=== PATIENT | female | born 1980 | race Caucasian/White ===

== ENCOUNTER 2017-08-28 11:35 | Emergency (ER) | payer OTHER ==
[2017-08-28 11:50] VITALS: BP 135/76; PULSE 98; O2SAT 98
--- NOTE | 2017-08-28 11:58 | ERPHSYRPT ---
- History of Present Illness Time Seen by Provider: 08/28/17 11:53 Source: patient Exam Limitations: no limitations Patient Subjective Stated Complaint: sore throat for several days. seen at [facility] last mon and was given a shot of cortisone. states is not getting any better. Triage Nursing Assessment: swelling noted to anterior neck. skin w/d, color normal, resp easy. Physician History: Patient is a 37-year-old female with her complaining that she started getting a sore throat on Monday, 3 days ago. She states her neck in the front is also a little swollen. She denies fever or chills. She went to see [facility] last week because her head was stuffy and she received steroid injections. Her past medical history is unremarkable. Timing/Duration: gradual onset, days (3) Severity: moderate Prearrival Treatment: no prearrival treatment Modifying Factors: Improves With: nothing Associated Symptoms: swollen glands, sore throat Allergies/Adverse Reactions: No Known Drug Allergies Allergy (Verified 08/28/17 11:44) Hx Tetanus, Diphtheria Vaccination/Date Given: No Hx Influenza Vaccination/Date Given: No Hx Pneumococcal Vaccination/Date Given: No - Review of Systems Constitutional: No Fever, No Chills Eyes: No Symptoms Ears, Nose, & Throat: Throat Pain, Painful Swallowing, No Throat Swelling Respiratory: No Cough, No Dyspnea Cardiac: No Chest Pain, No Edema, No Syncope Abdominal/Gastrointestinal: No Abdominal Pain, No Nausea, No Vomiting, No Diarrhea Genitourinary Symptoms: No Dysuria Musculoskeletal: No Back Pain, No Neck Pain Skin: No Rash Neurological: No Dizziness, No Focal Weakness, No Sensory Changes Psychological: No Symptoms Endocrine: No Symptoms Hematologic/Lymphatic: No Symptoms Immunological/Allergic: No Symptoms All Other Systems: Reviewed and Negative - Past Medical History Pertinent Past Medical History: Yes Neurological History: No Pertinent History ENT History: No Pertinent History Cardiac History: No Pertinent History Respiratory History: Bronchitis, COPD Endocrine Medical History: No Pertinent History Musculoskeletal History: No Pertinent History GI Medical History: No Pertinent History History: No Pertinent History Psycho-Social History: No Pertinent History Female Reproductive Disorders: No Pertinent History - Past Surgical History Past Surgical History: Yes Neuro Surgical History: No Pertinent History Cardiac: No Pertinent History Respiratory: No Pertinent History Gastrointestinal: No Pertinent History Genitourinary: No Pertinent History Musculoskeletal: No Pertinent History Female Surgical History: Section, Tubal Ligation - Social History Smoking Status: Current every day smoker How long have you smoked: 23 Exposure to second hand smoke: Yes Drug Use: none Patient Lives Alone: No - Female History Hx Last Menstrual Period: two weeks ago Hx Now: No - Nursing Vital Signs Nursing Vital Signs: Initial Vital Signs Temperature 98.9 F 08/28/17 11:40 Pulse Rate 98 H 08/28/17 11:40 Respiratory Rate 18 08/28/17 11:40 Blood Pressure 135/76 08/28/17 11:40 O2 Sat by Pulse Oximetry 98 08/28/17 11:40 Pain Scale Pain Intensity 8 - Physical Exam General Appearance: no apparent distress, alert Eye Exam: bilateral eye: PERRL, EOMI Ear Exam: bilateral ear: auricle normal Nasal Exam: normal inspection Throat Exam: tonsillar exudate, tonsillar swelling Neck Exam: supple Cardiovascular/Respiratory Exam: regular rate/rhythm, wheezing (mild) Abdominal Exam: non-tender, soft Neurologic Exam: alert, oriented x 3, sensation nml, No motor deficits Skin Exam: normal color, warm, dry SpO2 Interpretation: normal SpO2: 98 Oxygen Delivery: Room Air Ordered Tests: Active Orders 24 hr Category Date Time Status STREP SCREEN-BETA A Stat Lab 08/28/17 12:30 Received - Progress Progress: unchanged Counseled pt/family regarding: lab results, diagnosis - Departure Time of Disposition: 13:07 Departure Disposition: Home Clinical Impression: Strep pharyngitis Condition: Stable Critical Care Time: No Referrals: RON STEPHENSON [Primary Care Provider] - Additional Instructions: You have strep throat. Take penicillin 500 mg 4 times a day for the complete 10 day period. You are considered infectious and can pass on the the disease for the first 24 hours after beginning the antibiotic. So for 24 hours, avoid public places if possible. Take Tylenol and ibuprofen as needed. Gargle with warm salt water as needed. Prescriptions: Penicillin V Potassium 500 mg PO QID #40 tablet
== END 2017-08-28 13:32 | disposition home or self-care (01) ==
LOC: ED 11:35
DX: J02.0 Streptococcal pharyngitis (principal)
CPT/HCPCS: 87430; 99283

== ENCOUNTER 2017-12-17 13:21 | Emergency (ER) | payer OTHER ==
[2017-12-17] MEDS ORDERED: Rocephin 1000 MG INJ IM ONE (13:38)
[2017-12-17 13:42] VITALS: BP 143/103; PULSE 84
--- NOTE | 2017-12-17 13:44 | ERPHSYRPT ---
- History of Present Illness Time Seen by Provider: 12/17/17 13:38 Source: patient Exam Limitations: no limitations Patient Subjective Stated Complaint: swelling and pain to right lower jaw with tooth pain started ths AM Triage Nursing Assessment: alert and oriented. swelling to right lower jaw and pain in bottom tooth. able to swallow secreations with no difficulty. no difficulty breathing, Physician History: This 37-year-old white female with history of COPD and bronchitis arrives with complaint of swelling and pain in her right anterior lateral mandibular region. According to patient she began to have pain in her right anterior lateral mandibular region 3 days ago then last night she began to have swelling in the area. She is not having problems swallowing she has no fevers no nausea no vomiting. Past medical history includes COPD and bronchitis. Past surgical history includes and tubal ligation. Social history positive tobacco use. Timing/Duration: day(s) (3 days) Severity: moderate Modifying Factors: Improves With: ibuprofen Associated Symptoms: other (pain and swelling right anterior lateral mandibular region), No nausea, No vomiting, No abdominal pain, No shortness of breath, No heartburn, No diaphoresis, No cough, No chills, No chest pain, No fever, No headaches, No loss of appetite, No malaise, No rash, No syncope, No seizure, No weakness Allergies/Adverse Reactions: No Known Drug Allergies Allergy (Verified 08/28/17 11:44) Hx Tetanus, Diphtheria Vaccination/Date Given: No Hx Influenza Vaccination/Date Given: No Hx Pneumococcal Vaccination/Date Given: No - Review of Systems Constitutional: No Fever, No Chills Eyes: No Symptoms Ears, Nose, & Throat: Mouth Pain, Mouth Swelling, Other (pain and swelling right anterior lateral mandibular region), No Ear Pain, No Ear Discharge, No Hearing Changes, No Tinnitus, No Nose Pain, No Nose Congestion, No Nose Discharge, No Sinus Drainage, No Epistaxis, No Loose Teeth, No Throat Pain, No Throat Swelling, No Hoarse, No Painful Swallowing, No Snoring, No Stridor Respiratory: No Cough, No Dyspnea Cardiac: No Chest Pain, No Edema, No Syncope Abdominal/Gastrointestinal: No Abdominal Pain, No Nausea, No Vomiting, No Diarrhea Genitourinary Symptoms: No Dysuria Musculoskeletal: No Back Pain, No Neck Pain Skin: No Rash Neurological: No Symptoms Psychological: No Symptoms Endocrine: No Symptoms All Other Systems: Reviewed and Negative - Past Medical History Pertinent Past Medical History: Yes Neurological History: No Pertinent History ENT History: No Pertinent History Cardiac History: No Pertinent History Respiratory History: Bronchitis, COPD Endocrine Medical History: No Pertinent History Musculoskeletal History: No Pertinent History GI Medical History: No Pertinent History History: No Pertinent History Psycho-Social History: No Pertinent History Female Reproductive Disorders: No Pertinent History - Past Surgical History Past Surgical History: Yes Neuro Surgical History: No Pertinent History Cardiac: No Pertinent History Respiratory: No Pertinent History Gastrointestinal: No Pertinent History Genitourinary: No Pertinent History Musculoskeletal: No Pertinent History Female Surgical History: Section, Tubal Ligation - Social History Smoking Status: Current every day smoker How long have you smoked: 23 Exposure to second hand smoke: Yes Drug Use: none Patient Lives Alone: No - Female History Hx Last Menstrual Period: now Hx Now: No - Nursing Vital Signs Nursing Vital Signs: Initial Vital Signs Temperature 99.2 F 12/17/17 13:29 Pulse Rate 84 12/17/17 13:29 Respiratory Rate 16 12/17/17 13:29 Blood Pressure 143/103 12/17/17 13:29 Pain Scale Pain Intensity 6 - Physical Exam General Appearance: mild distress, other (moderate edema right anterior lateral mandibular region, tender with palpation) Eye Exam: PERRL/EOMI, eyes nml inspection Ears, Nose, Throat Exam: TMs normal, pharynx normal, moist mucous membranes, other (carious tooth right anterior lateral mandibular region. Swelling of the face corresponding to this area, tender with palpation) Neck Exam: normal inspection, non-tender, supple, full range of motion Respiratory Exam: normal breath sounds, lungs clear, No respiratory distress Cardiovascular Exam: regular rate/rhythm, normal heart sounds, normal peripheral pulses Gastrointestinal/Abdomen Exam: soft, normal bowel sounds, No tenderness, No mass Back Exam: normal inspection, normal range of motion, No CVA tenderness, No vertebral tenderness Extremity Exam: normal inspection, normal range of motion, pelvis stable Neurologic Exam: alert, oriented x 3, cooperative, community facilitator II-XII nml as tested, normal mood/affect, nml cerebellar function, sensation nml, No motor deficits, No sensory deficit Skin Exam: normal color, warm, dry, No rash SpO2 Interpretation: normal (98% him) - Course Nursing assessment & vital signs reviewed: Yes Ordered Tests: Medication Summary Generic Name Dose Route Start Last Admin Trade Name [place]q PRN Reason Stop Dose Admin Ceftriaxone Sodium 1,000 mg 12/17/17 13:38 Rocephin 1000 Mg Inj IM 12/17/17 13:39 STAT ONE - Progress Progress: improved Progress Note: 12/17/17 13:44 This is a 37-year-old white female arrives with complaint of swelling and pain in the right anterior lateral mandibular region she had the swelling since last night, she had pain in the area for 3 days. She appears to have an abscess with corresponding dental caries in the right anterior lateral mandibular region. Will go ahead and give patient Rocephin 1 g IM plan home with clindamycin 300 mg orally 3 times a day for 10 days, cold packs to the area externally for 24- 48 hours. [place] for pain. May also continue Advil. Patient is to follow-up with her dentist. - Departure Time of Disposition: 13:46 Departure Disposition: Home Clinical Impression: Pain due to dental caries, Dental abscess Condition: Fair Critical Care Time: No Referrals: RON STEPHENSON [Primary Care Provider] - Instructions: Tooth Abscess (DC) Additional Instructions: Return home. Cold packs to area 24-48 hours (external). Avoid excessively hot or cold foods. Clindamycin and [place] as prescribed. May also take Advil every 6 hours as needed for pain. Follow-up with your dentist. Return for acute distress or for severe symptoms. Prescriptions: Clindamycin HCl 300 mg PO TID #30 capsule Hydrocodone/Acetaminophen [[place] 5-325 Tablet] 1 tab PO Q4-6HPRN PRN #12 tablet MDD 6 tablets PRN Reason: Pain
[2017-12-17] MEDS ORDERED: Rocephin 1000 MG INJ ONE (13:48)
== END 2017-12-17 14:28 | disposition home or self-care (01) ==
LOC: ED 13:21
DX: K04.7 Periapical abscess without sinus (principal); K02.9 Dental caries, unspecified
CPT/HCPCS: 96372; 99283; J0696

== ENCOUNTER 2018-03-08 15:50 | Emergency (ER) | payer OTHER ==
[2018-03-08 16:09] VITALS: O2SAT 98
[2018-03-08] MEDS ORDERED: Rocephin 1000 MG INJ IM STA (16:46)
--- NOTE | 2018-03-08 16:46 | ERPHSYRPT ---
- History of Present Illness Time Seen by Provider: 03/08/18 16:43 Source: patient, family Exam Limitations: no limitations Patient Subjective Stated Complaint: swelling to right side of face lower jaw today. has had toothache x 3 days. Triage Nursing Assessment: pain and swelling to right lower face today with toothache x 3 days. no injury. no difficulty breathing. Physician History: dental pain right lower with tender right lower permolar reproducing pain to percussion ; supple anterior neckand digastric triangle , swallowing OK Timing/Duration: gradual onset Severity: moderate ENT Location: dental Prearrival Treatment: over the counter meds Modifying Factors: Improves With: nothing Associated Symptoms: facial pain/swelling Allergies/Adverse Reactions: No Known Drug Allergies Allergy (Verified 03/08/18 16:52) Hx Tetanus, Diphtheria Vaccination/Date Given: No Hx Influenza Vaccination/Date Given: No Hx Pneumococcal Vaccination/Date Given: No - Review of Systems Constitutional: No Fever, No Chills Eyes: No Symptoms Ears, Nose, & Throat: Mouth Pain Respiratory: No Cough, No Dyspnea Cardiac: No Chest Pain, No Edema, No Syncope Abdominal/Gastrointestinal: No Abdominal Pain, No Nausea, No Vomiting, No Diarrhea Genitourinary Symptoms: No Dysuria Musculoskeletal: No Back Pain, No Neck Pain Skin: No Rash Neurological: No Dizziness, No Focal Weakness, No Sensory Changes Psychological: No Symptoms Endocrine: No Symptoms All Other Systems: Reviewed and Negative - Past Medical History Pertinent Past Medical History: Yes Neurological History: No Pertinent History ENT History: No Pertinent History Cardiac History: No Pertinent History Respiratory History: Bronchitis, COPD Endocrine Medical History: No Pertinent History Musculoskeletal History: No Pertinent History GI Medical History: No Pertinent History History: No Pertinent History Psycho-Social History: No Pertinent History Female Reproductive Disorders: No Pertinent History - Past Surgical History Past Surgical History: Yes Neuro Surgical History: No Pertinent History Cardiac: No Pertinent History Respiratory: No Pertinent History Gastrointestinal: No Pertinent History Genitourinary: No Pertinent History Musculoskeletal: No Pertinent History Female Surgical History: Section, Tubal Ligation - Social History Smoking Status: Current every day smoker How long have you smoked: 23 Exposure to second hand smoke: No Drug Use: none Patient Lives Alone: No - Female History Hx Now: No - Nursing Vital Signs Nursing Vital Signs: Initial Vital Signs Temperature 99.0 F 03/08/18 16:01 Pulse Rate 82 03/08/18 16:01 Respiratory Rate 18 03/08/18 16:01 Blood Pressure 171/118 03/08/18 16:01 O2 Sat by Pulse Oximetry 98 03/08/18 16:01 Pain Scale Pain Intensity 7 - Physical Exam General Appearance: no apparent distress, alert Eye Exam: bilateral eye: normal inspection, PERRL, EOMI Ear Exam: bilateral ear: auricle normal Nasal Exam: normal inspection Throat Exam: pharynx normal, dental tenderness, moist mucus membranes, No tonsillar exudate Neck Exam: normal inspection, non-tender, supple, trachea midline Cardiovascular/Respiratory Exam: normal breath sounds, regular rate/rhythm Abdominal Exam: non-tender, soft Neurologic Exam: alert, oriented x 3, sensation nml, No motor deficits Skin Exam: normal color, warm, dry SpO2 Interpretation: normal SpO2: 98 Oxygen Delivery: Room Air - Course Nursing assessment & vital signs reviewed: Yes - CT Exams Soft Tissue Neck CT Interpretation: Tele-radiologist Report, Other (nothing requiring drainage, STS without airway involvement) Ordered Tests: Active Orders 24 hr Category Date Time Status IV Insertion STAT Care 03/08/18 16:46 Active NECK WO CONTRAST [CT] Stat Exams 03/08/18 16:49 Ordered CBC W DIFF Stat Lab 03/08/18 16:46 Completed Medication Summary Generic Name Dose Route Start Last Admin Trade Name Freq PRN Reason Stop Dose Admin Ceftriaxone Sodium mg 03/08/18 16:46 Rocephin 1000 Mg Inj IM 03/08/18 16:47 STAT STA Clindamycin HCl/Dextrose 900 mg in 50 mls @ 100 mls/hr 03/08/18 17:27 Clindamycin-D5w 900 Mg/50 Ml IV 03/08/18 17:56 STAT STA Discontinued Medications Generic Name Dose Route Start Last Admin Trade Name Freq PRN Reason Stop Dose Admin Diphenhydramine HCl 25 mg 03/08/18 17:16 03/08/18 17:30 Benadryl 50 Mg/Ml IV 03/08/18 17:17 25 mg STAT ONE Administration Diphenhydramine HCl Confirm 03/08/18 17:19 Benadryl 50 Mg/Ml Administered 03/08/18 17:20 Dose 50 mg .ROUTE .STK-MED ONE Ceftriaxone Sodium/Dextrose 1 g in 50 mls @ 100 mls/hr 03/08/18 17:05 17:37 Rocephin 1 Gm-D5w 50 Ml Bag IV 03/08/18 17:34 100 ml/hr STAT STA 100 mls/hr Administration Ceftriaxone Sodium/Dextrose Confirm 03/08/18 17:20 Rocephin 1 Gm-D5w 50 Ml Bag Administered 03/08/18 17:21 Dose 1 g in 50 mls @ ud IV .STK-MED ONE Clindamycin HCl/Dextrose Confirm 03/08/18 17:39 Clindamycin-D5w 900 Mg/50 Ml Administered 03/08/18 17:40 Dose 900 mg in 50 mls @ ud IV .STK-MED ONE Morphine Sulfate 4 mg 03/08/18 17:15 03/08/18 17:29 Morphine Sulfate 4 Mg Inj IV 03/08/18 17:16 4 mg STAT ONE Administration Morphine Sulfate Confirm 03/08/18 17:20 Morphine Sulfate 4 Mg Inj Administered 03/08/18 17:21 Dose 4 mg .ROUTE .STK-MED ONE Ondansetron HCl 4 mg 03/08/18 17:16 03/08/18 17:30 Zofran 4 Mg/2 Ml Vial IV 03/08/18 17:17 4 mg STAT ONE Administration Ondansetron HCl Confirm 03/08/18 17:19 Zofran 4 Mg/2 Ml Vial Administered 03/08/18 17:20 Dose 4 mg .ROUTE .STK-MED ONE Lab/Rad Data: Laboratory Result Diagrams 03/08/18 16:46 Laboratory Results 03/08/18 Range/Units 16:46 WBC 13.3 H (4.0-10.5) K/mm3 RBC 4.20 (4.1-5.4) M/mm3 Hgb 11.0 L (12.0-16.0) gm/dl Hct 35.6 (35-47) % MCV 84.8 (78-100) fl MCH 26.1 (26-32) pg MCHC 30.9 L (32-36) g/dl RDW 17.0 H (11.5-14.0) % Plt Count 428 (150-450) K/mm3 MPV 10.2 H (6-9.5) fl Gran % 72.1 H (36.0-66.0) % Eos # (Auto) 0.25 (0-0.5) Absolute Lymphs (auto) 2.24 (1.0-4.6) Absolute Monos (auto) 1.20 (0.0-1.3) Lymphocytes % 16.8 L (24.0-44.0) % Monocytes % 9.0 (0.0-12.0) % Eosinophils % 1.9 (0.00-5.0) % Basophils % 0.2 (0.0-0.4) % Absolute Granulocytes 9.58 H (1.4-6.9) Basophils # 0.03 (0-0.4) - Progress Progress: improved, re-examined Counseled pt/family regarding: diagnosis, need for follow-up, rad results - Departure Time of Disposition: 17:51 Departure Disposition: Home Clinical Impression: Dental abscess Condition: Good Critical Care Time: No Referrals: RON STEPHENSON [Primary Care Provider] - Instructions: Tooth Abscess (DC), Tooth Decay, Adult (DC) Additional Instructions: see your dentist as soon as possible for definitive treatment. continue antibiotics. return meantime if not improving , difficulties swallowing or short of breath or any other concerns. followup with your dr to recheck BP which was a little elevated here. Prescriptions: Amoxicillin/Potassium Clav [Augmentin 875-125 Tablet] 1 each PO BID #20 tablet Hydrocodone Bit/Acetaminophen [[place] 5-325 Tablet] 1 each PO Q4-6HPRN PRN #14 tablet MDD 4 per day PRN Reason: Pain
[2018-03-08] MEDS ORDERED: ROCEPHIN 1 Gm-D5w 50 ml Bag** 1 G/50 ML IVPB IV STA (17:05)
[2018-03-08] MEDS ORDERED: MORPHINE SULFATE 4 MG INJ IV ONE (17:15)
[2018-03-08] MEDS ORDERED: Zofran 4 MG/2 ML VIAL IV ONE (17:16)
[2018-03-08] MEDS ORDERED: BENADRYL 50 MG/ML IV ONE (17:16)
[2018-03-08 17:18] LABS: BASOPHIL % 0.2 % (0.0-0.4); Basophil (Absolute #) 0.03 (0-0.4); Eosinophil % 1.9 % (0.00-5.0); Eosinophil (Absolute #) 0.25 (0-0.5); Granulocyte Absolute (ANC) 9.58 (1.4-6.9); Granulocytes % 72.1 % (36.0-66.0); Hematocrit 35.6 % (35-47); Lymphocyte (Absolute #) 2.24 (1.0-4.6); Lymphocytes % 16.8 % (24.0-44.0); Mean Cell Volume 84.8 fl (78-100); Mean Corpuscular Hgb Concent. 30.9 g/dl (32-36); Mean Platelet Volume 10.2 fl (6-9.5); Platelet Count 428 K/mm3 (150-450); White Blood Count 13.3 K/mm3 (4.0-10.5)
[2018-03-08] MEDS ORDERED: Zofran 4 MG/2 ML VIAL ONE (17:19)
[2018-03-08] MEDS ORDERED: BENADRYL 50 MG/ML ONE (17:19)
[2018-03-08] MEDS ORDERED: ROCEPHIN 1 Gm-D5w 50 ml Bag** 1 G/50 ML IVPB IV ONE (17:20)
[2018-03-08] MEDS ORDERED: MORPHINE SULFATE 4 MG INJ ONE (17:20)
[2018-03-08 17:22] LABS: Mean Corpuscular Hemoglobin 26.1 pg (26-32)
[2018-03-08] MEDS ORDERED: CLINDAMYCIN-D5W 900 MG/50 ML*** 900 MG/50 ML BAG IV STA (17:27)
[2018-03-08] MEDS ORDERED: CLINDAMYCIN-D5W 900 MG/50 ML*** 900 MG/50 ML BAG IV ONE (17:39)
[2018-03-08 17:56] VITALS: BP 152/100; PULSE 78
--- NOTE | 2018-03-12 07:48 | XRAY ---
Indication: Right neck/jaw pain and swelling. Multiple contiguous axial images obtained through the neck without contrast as ordered. Cutaneous marker placed over region of interest. Comparison: None Cutaneous BB seen right jaw level where there is moderate soft tissue swelling/induration favoring cellulitis. Lack of IV contrast precludes further characterization but no focal walled off fluid collection or abnormal air bubbles. There are a few small submandibular lymph nodes, largest 1.6 x 1.2 cm presumed reactive. Additional small bilateral cervical lymph nodes. No acute fracture, suspicious bony lesions, or osseous destructive process. Parotid and submandibular glands are bilaterally symmetric. Major arteries and veins are normal in course and caliber. Noncontrasted thyroid gland unremarkable. Supra-and infraglottic airway widely patent. Normal appendix. Cervical spine intact with mild C5-C7 endplate spurring. Base of the brain and lung apices are unremarkable. Impression: Right jaw soft tissue swelling/induration favoring cellulitis with small reactive lymph nodes. CTDI 12.78
== END 2018-03-08 18:24 | disposition home or self-care (01) ==
LOC: ED 15:50
DX: K04.7 Periapical abscess without sinus (principal)
CPT/HCPCS: 36000; 36415; 70490; 85025; 96365; 96367; 96374; 96375; 99284; J0696; J1200; J2270; J2405

== ENCOUNTER 2023-11-21 23:31 | Emergency (ER) | payer OTHER ==
[2023-11-21 23:43] VITALS: RESP 16; TEMP 98.4
--- NOTE | 2023-11-21 23:55 | ERPHSYRPT ---
- History of Present Illness Time Seen by Provider: 11/21/23 23:52 Source: patient Exam Limitations: no limitations Physician History: Patient presents with left ear pain after direct trauma in the ear canal from a head massage tool. Patient reports bleeding from the left ear. No previous injury to the ear canal. She does report a history of tubes in the ear as a child. No change in hearing. Timing/Duration: abrupt onset Severity: mild ENT Location: ear (L) Prearrival Treatment: no prearrival treatment Modifying Factors: Improves With: other (na) Associated Symptoms: ear pain (L) Allergies/Adverse Reactions: No Known Drug Allergies Allergy (Verified 03/08/18 16:52) Hx Tetanus, Diphtheria Vaccination/Date Given: No Hx Influenza Vaccination/Date Given: No Hx Pneumococcal Vaccination/Date Given: No - Review of Systems All Other Systems: Reviewed and Negative - Past Medical History Pertinent Past Medical History: Yes Neurological History: No Pertinent History ENT History: No Pertinent History Cardiac History: No Pertinent History Respiratory History: Bronchitis, COPD Endocrine Medical History: No Pertinent History Musculoskeletal History: No Pertinent History GI Medical History: No Pertinent History History: No Pertinent History Psycho-Social History: No Pertinent History Female Reproductive Disorders: No Pertinent History - Past Surgical History Past Surgical History: Yes Neuro Surgical History: No Pertinent History Cardiac: No Pertinent History Respiratory: No Pertinent History Gastrointestinal: No Pertinent History Genitourinary: No Pertinent History Musculoskeletal: No Pertinent History Female Surgical History: Section, Tubal Ligation - Social History Smoking Status: Current every day smoker How long have you smoked: 23 Exposure to second hand smoke: No Drug Use: none Patient Lives Alone: No - Nursing Vital Signs Nursing Vital Signs: Initial Vital Signs Temperature 98.4 F 11/21/23 23:40 Pulse Rate 70 11/21/23 23:40 Respiratory Rate 16 11/21/23 23:40 Blood Pressure 127/86 11/21/23 23:40 O2 Sat by Pulse Oximetry 96 11/21/23 23:40 Pain Scale Pain Intensity 1 - Physical Exam General Appearance: no apparent distress Ear Exam: left ear: auricle normal, bleeding (5 o clock position at base of TM), tenderness SpO2: 96 - Course Nursing assessment & vital signs reviewed: Yes - Progress Progress: improved Progress Note: 11/22/23 00:02 Will give abx ear gtts and ketorolac gtts for pain. Sending Ciprodex to pharmacy. Recommend f/u w/ ENT. Don't get left ear wet. Pack with cotton ball. Counseled pt/family regarding: diagnosis, need for follow-up Medical Desision Making - Diagnostic Testing Diagnostic test were ordered, analyzed, and reviewed by me: No - Risk of complications The pt has a mod risk of morbidity or mortality based on: Need for prescription drug management - Departure Departure Disposition: Home Clinical Impression: Hematotympanum of left ear Condition: Good Critical Care Time: No Referrals: DOCTOR,NO FAMILY [Primary Care Provider] - Follow up/PCP as directed CHELO DAN [NON-STAFF PHY W/O PRIVILEGES] - Follow up with PCP 2 days Instructions: Ruptured Eardrum (DC) Prescriptions: Ciprofloxacin HCl/Dexameth [Ciproflox-Dexameth Otic Susp] 7.5 ml OT BID 7 Days #1 unit
[2023-11-22 00:02] VITALS: BP 136/83; PULSE 65
[2023-11-22] MEDS ORDERED: Acular OPTH SOL OP ONE (00:03)
[2023-11-22] MEDS ORDERED: Ocuflox OPHTHALMIC 5 ML OP ONE (00:03)
[2023-11-22] MEDS: Acular OPTH SOL OP ONE (00:03)
[2023-11-22 00:04] VITALS: O2SAT 96
[2023-11-22] MEDS: Floxin Otic 5 ML OT ONE (00:05)
== END 2023-11-22 00:20 | disposition home or self-care (01) ==
LOC: ED 23:31
DX: S09.8XXA Other specified injuries of head, initial encounter (principal); H73.892 Other specified disorders of tympanic membrane, left ear; H92.22 Otorrhagia, left ear; Z79.899 Other long term (current) drug therapy; Z72.0 Tobacco use
CPT/HCPCS: 99281; A9270-GY